=== PATIENT | female | born 1965 ===

== ENCOUNTER 2017-04-07 20:15 | Emergency (ER) | payer OTHER ==
[2017-04-07 20:15] VITALS: BMI 26.3
[2017-04-07 21:28] LABS: BASO # 0.1 K/uL (0.0-0.2); BASO % 1.2 % (0.0-2.0); EOS # 0.1 K/uL (0.0-0.7); EOS % 1.7 % (0.0-4.0); HEMOGLOBIN 12.6 g/dL (12.0-16.0); LYMPH # 3.7 K/uL (1.0-4.3); LYMPH % 45.9 % (20.0-40.0); MEAN CELL VOLUME 85.2 fl (81.0-99.0); MEAN CORPUSCULAR HGB CONC 32.9 g/dL (33.0-37.0); MEAN PLATELET VOLUME 11.8 fl (7.2-11.7); MONO # 0.5 K/uL (0.0-0.8); MONO % 6.4 % (0.0-10.0); NEUT # 3.6 K/uL (1.8-7.0); NEUT % 44.8 % (50.0-75.0); NRBC % 0.1 % (0.0-0.0); RBC 4.51 Mil/uL (3.80-5.20); RED CELL DISTRIBUTION WIDTH 13.8 % (11.5-14.5)
[2017-04-07 21:35] LABS: BLOOD UREA NITROGEN 19 mg/dl (7-17)
[2017-04-07 21:38] VITALS: BP 120/76; PULSE 82; RESP 16; TEMP 98
--- NOTE | 2017-04-07 21:40 | ED PDOC ---
HPI: Chest Pain Time Seen by Provider: 04/07/17 20:30 Chief Complaint (Nursing): Shortness Of Breath Chief Complaint (Provider): Chest Pain History Per: Patient History/Exam Limitations: no limitations Onset/Duration Of Symptoms: Days (4) Current Symptoms Are (Timing): Still Present Quality: "Pain" Associated Symptoms: denies: Dyspnea, Syncope Additional Complaint(s): Razia Estes is a 51 y/o female presenting to the ER on 04/07/2017 with complaints of left-sided chest pain for four days. Pain, which is constant and worsened upon deep breaths or movements, started four days ago when she tripped and hit the left side of her chest on the ground. She denies any other injuries after the fall, but states the pain has exacerbated since, prompting her to seek medical evaluation. She denies any associated syncope, dizziness, or dyspnea. Past Medical History Reviewed: Historical Data, Nursing Documentation, Vital Signs Vital Signs: Last Vital Signs Temp 98.0 F 04/07/17 21:37 Pulse 82 04/07/17 21:37 Resp 16 04/07/17 21:37 BP 120/76 04/07/17 21:37 Pulse Ox 99 04/07/17 21:43 - Medical History PMH: Diabetes, HTN, Hyperlipidemia - Surgical History Surgical History: Denies: Appendectomy - Family History Family History: States: Unknown Family Hx - Social History Current smoker - smoking cessation education provided: No Alcohol: None Drugs: Denies - Home Medications Home Medications: Ambulatory Orders Medication Instructions Recorded RX: Naproxen [Naprosyn] 500 mg PO BID PRN #30 tab 05/26/14 Acetaminophen with Codeine 1 tab PO Q6 PRN #20 tab 05/24/15 [Tylenol with Codeine No. 3 300 mg-30 mg] Tizanidine Hydrochloride 4 mg PO Q6 PRN #20 tab 05/24/15 [Tizanidine HCl] Ibuprofen [Motrin] 400 mg PO Q6 #30 tab 11/27/15 Nitrofurantoin Macrocrystals 100 mg PO BID #14 cap 11/27/15 [Macrobid] Cyclobenzaprine [Cyclobenzaprine 10 mg PO Q8 PRN #30 tab 12/22/15 HCl] RX: Naproxen [Naprosyn] 500 mg PO BID PRN #30 tab 12/22/15 Arm Brace [Wrist Brace] 1 each MC DAILY #1 each 03/01/16 RX: Naproxen [Naprosyn] 500 mg PO BID PRN #20 tablet 03/01/16 RX: predniSONE [predniSONE Tab] 40 mg PO DAILY #10 tab 03/01/16 Ibuprofen [Motrin] 400 mg PO Q6 #30 tab 06/10/16 Naproxen [Naprosyn] 500 mg PO BID #20 tab 07/25/16 - Allergies Allergies/Adverse Reactions: Allergies Allergy/AdvReac Type Severity Reaction Status Date / Time No Known Allergies Allergy Verified 06/10/16 11:59 BRANDON Risk Score for UA/NSTEMI - BRANDON Risk Score Age > 64: NO 3 or more CAD Risk Factors: NO Known CAD (Stenosis greater than 50%): NO Aspirin use in past 7 days: NO Severe Angina: NO EKG ST changes greater than 0.5mm: NO Positive Cardiac Marker: NO BRANDON Score: 0 Risk %: 5% Wells Criteria for PE - Wells Criteria for Pulmonary Embolism Clinical Signs and Symptoms of DVT: No P.E is #1 Diagnosis, or Equally Likely: No Heart Rate >100: No Immobilization at least 3 days;Surgery previous 4 weeks: No Previous, objectively diagnosed PE or DVT: No Hemoptysis: No Malignancy w/treatment within 6 months, or palliative: No Total Score: 0 Review of Systems ROS Statement: Except As Marked, All Systems Reviewed And Found Negative Cardiovascular: Positive for: Chest Pain Respiratory: Negative for: Shortness of Breath Neurological: Negative for: Headache, Dizziness Physical Exam - Reviewed Nursing Documentation Reviewed: Yes Vital Signs Reviewed: Yes - Physical Exam Appears: Positive for: Non-toxic, No Acute Distress Head Exam: Positive for: ATRAUMATIC, NORMOCEPHALIC Skin: Positive for: Normal Color. Negative for: Rash Eye Exam: Positive for: Normal appearance, EOMI, PERRL Neck: Positive for: Normal, Painless ROM, Supple Cardiovascular/Chest: Positive for: Regular Rate, Rhythm. Negative for: Chest Non Tender ( (+) ttp to left sided chest wall with no signs of ecchymosis, deformity, or swelling), Murmur Respiratory: Positive for: Normal Breath Sounds. Negative for: Respiratory Distress Gastrointestinal/Abdominal: Positive for: Normal Exam, Soft. Negative for: Tenderness Extremity: Positive for: Normal ROM. Negative for: Deformity, Swelling Neurologic/Psych: Positive for: Alert, Oriented. Negative for: Motor/Sensory Deficits - Laboratory Results Result Diagrams: 04/07/17 21:22 04/07/17 21:22 - ECG O2 Sat by Pulse Oximetry: 99 - Progress Re-evaluation Time: 22:34 Condition: Re-examined, Improved Medical Decision Making Medical Decision Makin:30 Initial Impression- 51 y/o female with chest pain. Differential diagnosis includes but is not limited to rib fracture, rib contusion; Will r/o pulmonary or cardiac etiology associated with trauma Initial Plan- * EKG * BMP * Troponin I * Toradol 30 mg IVP * XR Ribs Documented by Luis Tinoco, acting as a scribe for Vince Martienz MD. All medical record entries made by the Scribe were at my direction and personally dictated by me. I have reviewed the chart and agree that the record accurately reflects my personal performance of the history, physical exam, medical decision making, and the department course for this patient. I have also personally directed, reviewed, and agree with the discharge instructions and disposition. Disposition - Clinical Impression Clinical Impression: Chest pain, Contusion of rib on left side - Patient ED Disposition Is Patient to be Admitted: No Doctor Will See Patient In The: Office Counseled Patient/Family Regarding: Studies Performed, Diagnosis, Need For Followup - Disposition Referrals: [facility] [Outside] Disposition: Routine/Home Disposition Time: 22:34 Condition: GOOD Additional Instructions: Take your medications. Return for worsening. Follow up with your PCP in 2-3 days. Instructions: Rib Contusion (ED)
[2017-04-07 21:41] VITALS: O2SAT 99
[2017-04-07 21:46] LABS: CALCIUM 9.5 mg/dL (8.4-10.2); GFR AFRICAN-AMERICAN > 60; GFR NON-AFRICAN AMERICAN > 60
--- NOTE | 2017-04-08 10:32 | RAD ---
PROCEDURE: Radiographs of the Chest and Left Ribs. HISTORY: left rib pain injury COMPARISON: Chest x-ray 12/22/2015. TECHNIQUE: Frontal radiograph of the chest and multiple oblique radiographs of the left ribs were obtained. FINDINGS: LEFT RIBS: No fracture or focal lesion visualized. LUNGS: Clear. PLEURA: No pneumothorax or pleural fluid. CARDIOVASCULAR: Normal sized heart. No pulmonary vascular congestion. OTHER FINDINGS: None. IMPRESSION: Unremarkable radiographs of the chest and left ribs. No left rib fracture.
--- NOTE | 2017-04-08 12:58 | CARD ---
APPROVED REPORT EKG Measurement Heart [id number] <Conclusion> Normal sinus rhythm Normal ECG
== END 2017-04-07 23:30 | disposition home or self-care (01) ==
LOC: H.ER 20:15
DX: S20.212A Contusion of left front wall of thorax, initial encounter (principal); W19.XXXA Unspecified fall, initial encounter; Y92.89 Other specified places as the place of occurrence of the external cause; E11.9 Type 2 diabetes mellitus without complications; E78.5 Hyperlipidemia, unspecified; I10 Essential (primary) hypertension

== ENCOUNTER 2017-09-21 23:23 | Emergency (ER) | payer SELFPAY ==
[2017-09-21 23:25] VITALS: BMI 26.3
[2017-09-21 23:35] VITALS: RESP 16
--- NOTE | 2017-09-22 00:48 | CT ---
EXAM: CT Head Without Intravenous Contrast CLINICAL HISTORY: 52 years old, female; Pain; Headache; Headache not specified; Additional info: Acute onset of headache TECHNIQUE: Axial computed tomography images of the head/brain without intravenous contrast. All CT scans at this facility use one or more dose reduction techniques, viz.: automated exposure control; ma/kV adjustment per patient size (including targeted exams where dose is matched to indication; i.e. head); or iterative reconstruction technique. Coronal and sagittal reformatted images were created and reviewed. COMPARISON: No relevant prior studies available. FINDINGS: Brain: No intracranial hemorrhage. No mass. No edema. Ventricles: No hydrocephalus. Bones/joints: No acute fracture. Soft tissues: Unremarkable. Sinuses: No acute sinusitis. Mastoid air cells: No mastoid effusion. Orbits: Unremarkable as visualized. IMPRESSION: 1. No definite acute intracranial abnormality.
[2017-09-22 01:47] VITALS: BP 135/77; PULSE 71; TEMP 98; O2SAT 99
[2017-09-22] MEDS ORDERED: Oxycodone/Acetaminophen 5/325 mg Tab PO STA (01:50)
[2017-09-22] MEDS ORDERED: Oxycodone/Acetaminophen 5/325 mg Tab ONE (01:55)
--- NOTE | 2017-09-22 04:08 | ED PDOC ---
HPI: Headache Time Seen by Provider: 09/21/17 23:47 Chief Complaint (Nursing): Headache Chief Complaint (Provider): Headache, frontal region for a few hours History Per: Patient History/Exam Limitations: no limitations Onset/Duration Of Symptoms: Hrs Current Symptoms Are (Timing): Still Present Additional Complaint(s): Pt reports taking tylenol 650mg at home without relief. Past Medical History Reviewed: Historical Data, Nursing Documentation, Vital Signs Vital Signs: Last Vital Signs Temp 98 F 09/22/17 01:47 Pulse 71 09/22/17 01:47 Resp 16 09/22/17 01:47 BP 135/77 09/22/17 01:47 Pulse Ox 99 09/22/17 01:47 - Medical History PMH: Diabetes, HTN, Hyperlipidemia - Surgical History Surgical History: Denies: Appendectomy - Family History Family History: States: Unknown Family Hx - Living Arrangements Living Arrangements: With Family - Social History Current smoker - smoking cessation education provided: No - Home Medications Home Medications: Ambulatory Orders Medication Instructions Recorded Naproxen [Naprosyn] 500 mg PO BID PRN #30 tab 05/26/14 Acetaminophen with Codeine 1 tab PO Q6 PRN #20 tab 05/24/15 [Tylenol with Codeine No. 3 300 mg-30 mg] Tizanidine Hydrochloride 4 mg PO Q6 PRN #20 tab 05/24/15 [Tizanidine HCl] Ibuprofen [Motrin] 400 mg PO Q6 #30 tab 11/27/15 Nitrofurantoin Macrocrystals 100 mg PO BID #14 cap 11/27/15 [Macrobid] Cyclobenzaprine [Cyclobenzaprine 10 mg PO Q8 PRN #30 tab 12/22/15 HCl] Naproxen [Naprosyn] 500 mg PO BID PRN #30 tab 12/22/15 Arm Brace [Wrist Brace] 1 each MC DAILY #1 each 03/01/16 Naproxen [Naprosyn] 500 mg PO BID PRN #20 tablet 03/01/16 predniSONE [predniSONE Tab] 40 mg PO DAILY #10 tab 03/01/16 Ibuprofen [Motrin] 400 mg PO Q6 #30 tab 06/10/16 Naproxen [Naprosyn] 500 mg PO BID #20 tab 07/25/16 oxyCODONE/Acetaminophen [Percocet 1 tab PO Q6 PRN #12 tab 04/07/17 5/325 mg Tab] oxyCODONE/Acetaminophen [Percocet 1 ea PO Q6H PRN #15 tab 09/22/17 5/325 mg Tab] - Allergies Allergies/Adverse Reactions: Allergies Allergy/AdvReac Type Severity Reaction Status Date / Time No Known Allergies Allergy Verified 06/10/16 11:59 Review of Systems ROS Statement: Except As Marked, All Systems Reviewed And Found Negative Constitutional: Negative for: Fever, Chills Gastrointestinal: Negative for: Nausea, Vomiting Skin: Negative for: Rash Neurological: Positive for: Headache Physical Exam - Reviewed Nursing Documentation Reviewed: Yes Vital Signs Reviewed: Yes - Physical Exam Appears: Positive for: Well, Non-toxic, No Acute Distress Head Exam: Positive for: ATRAUMATIC, NORMAL INSPECTION, NORMOCEPHALIC Skin: Positive for: Normal Color, Warm, DRY Eye Exam: Positive for: Normal appearance, EOMI, PERRL ENT: Positive for: Normal ENT Inspection Neck: Positive for: Normal, Painless ROM Cardiovascular/Chest: Positive for: Regular Rate, Rhythm Respiratory: Positive for: CNT, Normal Breath Sounds Back: Positive for: Normal Inspection Extremity: Positive for: Normal ROM Neurologic/Psych: Positive for: Alert, Oriented - ECG O2 Sat by Pulse Oximetry: 99 Medical Decision Making Medical Decision Making: Head CT normal. Disposition - Clinical Impression Clinical Impression: Acute headache - Patient ED Disposition Is Patient to be Admitted: No Counseled Patient/Family Regarding: Diagnosis, Need For Followup, Rx Given - Disposition Disposition: Routine/Home Disposition Time: 04:04 Condition: GOOD Prescriptions: oxyCODONE/Acetaminophen [Percocet 5/325 mg Tab] 1 ea PO Q6H PRN #15 tab PRN Reason: Pain, Severe (8-10) Instructions: Acute Headache (ED) Print Language: [email or web address]
== END 2017-09-22 04:29 | disposition home or self-care (01) ==
LOC: H.ER 23:23
DX: R51 Headache (principal); E11.9 Type 2 diabetes mellitus without complications; E78.5 Hyperlipidemia, unspecified; I10 Essential (primary) hypertension